=== PATIENT | male | born 1960 | race Caucasian/White ===

== ENCOUNTER 2016-06-14 08:48 | Outpatient (CLI) | payer OTHER ==
--- NOTE | 2016-06-14 10:41 | DIAGNOSTIC IMAGING REPORT ---
PROCEDURE: US ABDOMEN ULTRASOUND-COMPLETE INDICATION: ABD PAIN TECHNIQUE: Tovar scale and color Doppler sonographic images of the abdomen were obtained without comparison. COMPARISON: None. FINDINGS: The liver is normal in size, contour, and echotexture. No mass or intrahepatic biliary dilatation. The gallbladder is normal without stones or sludge. The wall is normal thickness measuring 2.4 mm No pericholecystic fluid or Ramires sign. The extrahepatic common duct is normal measuring 5 mm The pancreas is not well seen. The abdominal aorta is normal in its course and caliber. The retrohepatic inferior vena cava is patent. There is appropriate hepatopetal flow in the portal vein. The right kidney measures 12.5 cm in length. The left kidney measures 12 cm in length. Both kidneys demonstrate normal morphology and cortical thickness without hydronephrosis, cyst, solid mass, or shadowing calculus. Color Doppler imaging demonstrates normal blood flow in each kidney. The spleen is normal in size measuring 13.6 cm in length. There is no perihepatic or perisplenic ascites. IMPRESSION: 1. Normal abdominal ultrasound. pancreas not well seen.
== END 2016-06-14 23:00 ==
LOC: US SRH 08:48
DX: R10.9 Unspecified abdominal pain (principal)